=== PATIENT | male | born 1965 | race Caucasian/White ===

== ENCOUNTER 2020-02-06 07:41 | Emergency (ER) | payer OTHER ==
[~2020-02-06] VITALS: Ht 175.3 cm; Wt 75.7 kg
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
--- NOTE | 2020-02-06 07:49 | NUR ---
DR HODGES AT BEDSIDE FOR EVAL.
[2020-02-06] MEDS ORDERED: ALPRAZOLAM 0.5 MG TABLET ONE (07:52)
[2020-02-06] MEDS ORDERED: KETOROLAC TROMETHAMINE INJ 30 MG/ML VIAL ONE (07:52)
--- NOTE | 2020-02-06 07:59 | NUR ---
RADIOLOGY AT BEDSIDE FOR CHEST XRAY.
[2020-02-06] MEDS ORDERED: KETOROLAC TROMETHAMINE INJ 60 MG/2 ML VIAL IM ONE (08:00)
[2020-02-06] MEDS ORDERED: ALPRAZOLAM 0.5 MG TABLET PO ONE (08:00)
[2020-02-06 08:42] VITALS: BP 142/89
--- NOTE | 2020-02-06 08:42 | NUR ---
Patient discharged to home in stable condition. Written and verbal after care instructions given. Patient verbalizes understanding of instruction.
== END 2020-02-06 08:44 | disposition home or self-care (01) ==
LOC: ER 07:51
DX: S20.212A Contusion of left front wall of thorax, initial encounter (principal); R00.0 Tachycardia, unspecified; Y08.89XA Assault by other specified means, initial encounter; Y93.89 Activity, other specified; Y92.89 Other specified places as the place of occurrence of the external cause; Y99.8 Other external cause status
CPT/HCPCS: 71045; 96372; 99283; J1885